=== PATIENT | male | born 1950 | race Caucasian/White ===

== ENCOUNTER → 2019-11-17 | Day surgery (SDC) | payer MEDICARE, BC ==
[~2019-11-17] MED LIST: Lactated Ringers 1,000 ML IV SCH; Propofol 200 MG/20 ML SDV IV ONE
[2019-11-17 10:41] VITALS: BP 131/78; PULSE 68
--- NOTE | 2019-11-17 11:45 | OR ---
DATE OF OPERATION: 11/17/2019 PREOPERATIVE DIAGNOSIS: FAMILY HISTORY OF COLON CARCINOMA. POSTOPERATIVE DIAGNOSIS: FAMILY HISTORY OF COLON CARCINOMA. SURGEON: Geovanni Cooper MD PROCEDURE: FULL-LENGTH COLONOSCOPY WITH FORCEPS POLYPECTOMY X1, SNARE POLYPECTOMY X1. ANESTHESIA: MAC. COMPLICATIONS: None. SPECIMEN: 1. Small sessile polyp, proximal ascending colon. 2. Tubulovillous adenoma, approximately 7 mm proximal to mid ascending colon. FINDINGS: 1. Full-length colonoscopy. 2. Pandiverticulosis, moderate. 3. Sessile polyp, proximal ascending colon. 4. Tubulovillous adenoma, approximately 8 mm proximal to mid ascending colon. RECOMMENDATIONS: Followup colonoscopy in 3 to 5 years pending path report. INDICATIONS: The patient has a family history of colon CA. His last colonoscopy was 5 years ago. He is in for a surveillance procedure. DESCRIPTION OF PROCEDURE: The patient was prepped and draped, placed in the left lateral decubitus position. A lubricated Olympus colonoscope was inserted and easily advanced to the cecum. The patient had a lot of stool throughout the sigmoid area, which was solid and could not be suctioned, but most of the transverse and right colon were okay. The cecal pouch appeared benign. Right outside the cecal pouch in the most proximal ascending colon, the patient had a small flat tubular adenoma removed with 3 forceps biopsies in its entirety. Just distal to that was a stalked adenoma deep in the haustral fold that was extremely challenging to get to. We were finally able to get a snare around this and remove without problem, suctioned into polyp trap #1. The rest of the ascending and transverse colon appeared benign. The patient does have pandiverticulosis extending all the way to the deep right colon, mild to moderate in severity. The descending and sigmoid colon otherwise had no other polyps, masses, ulceration, or lesions. No vascular abnormalities or signs of colitis. The rectal vault appeared benign. 25% of this was covered in thick stool, was unable to see. I was able to retroflex and the perianal region looked benign. Air was then suctioned, scope removed without complication. ELZBIETA/BHARATH /[id number]
== END ==
LOC: CC.SDS 07:39
PROVIDERS: ATTEND Family Medicine
DX: D12.0 Benign neoplasm of cecum (principal); D12.2 Benign neoplasm of ascending colon; K57.30 Diverticulosis of large intestine without perforation or abscess without bleeding; E11.9 Type 2 diabetes mellitus without complications; I10 Essential (primary) hypertension; E78.5 Hyperlipidemia, unspecified; T78.3XXA Angioneurotic edema, initial encounter; N40.1 Benign prostatic hyperplasia with lower urinary tract symptoms; N13.8 Other obstructive and reflux uropathy; Z79.82 Long term (current) use of aspirin; Z79.899 Other long term (current) drug therapy; Z79.84 Long term (current) use of oral hypoglycemic drugs; Z87.891 Personal history of nicotine dependence; Z80.0 Family history of malignant neoplasm of digestive organs; Z98.890 Other specified postprocedural states
CPT/HCPCS: 00812; 45385; 88305; J2704; J7120

== ENCOUNTER 2024-11-17 06:30 | Day surgery (SDC) | payer MEDICARE, BC ==
[2024-11-17] MEDS: Lactated Ringers 1,000 ML IV SCH (06:54)
[2024-11-17] MEDS ORDERED: Propofol 200 MG/20 ML SDV ONE ×2 (07:30)
[2024-11-17] MEDS ORDERED: Ketamine 200 MG/20 ML MDV ONE (07:30)
[2024-11-17] MEDS ORDERED: fentaNYL 50 MCG/ML SDV ONE (07:30)
[2024-11-17] MEDS ORDERED: Phenylephrine 1% 10 MG/ML SDV ONE (07:30)
[2024-11-17 09:35] VITALS: BP 138/66; PULSE 62
== END 2024-11-17 09:02 | disposition home or self-care (01) ==
LOC: CC.SDS 06:30
PROVIDERS: ATTEND Family Medicine
DX: Z12.11 Encounter for screening for malignant neoplasm of colon (principal); D12.0 Benign neoplasm of cecum; D12.2 Benign neoplasm of ascending colon; D12.3 Benign neoplasm of transverse colon; K57.30 Diverticulosis of large intestine without perforation or abscess without bleeding; Z86.0100 Personal history of colon polyps, unspecified; Z80.0 Family history of malignant neoplasm of digestive organs; I10 Essential (primary) hypertension; E11.9 Type 2 diabetes mellitus without complications; N40.1 Benign prostatic hyperplasia with lower urinary tract symptoms; E87.6 Hypokalemia; G25.2 Other specified forms of tremor; E78.5 Hyperlipidemia, unspecified; Z79.84 Long term (current) use of oral hypoglycemic drugs; Z79.899 Other long term (current) drug therapy; Z88.6 Allergy status to analgesic agent; Z88.8 Allergy status to other drugs, medicaments and biological substances
CPT/HCPCS: 00811; 99100; J2371; J2704; J3010; J3490; J7120